=== PATIENT | male | born 1985 | race Hispanic/Latino ===

== ENCOUNTER 2017-12-10 00:07 | Emergency (ER) | payer MEDICARE ==
[2016-05-02 23:20] VITALS: BMI 31.0
--- NOTE | 2017-12-10 01:11 | ED PDOC ---
HPI: Psych/Substance Abuse Time Seen by Provider: 12/10/17 00:39 Chief Complaint (Nursing): Psychiatric Evaluation Chief Complaint (Provider): overdose History Per: Patient History/Exam Limitations: no limitations Onset/Duration Of Symptoms: Hrs Suicide/Self Injury Attempted (Context): Ingestion Additional Complaint(s): 32 y/o male self-presents for overdose eval. Patient states he received Vivitrol injection in the [facility] 2 days ago for opioid dependence; states since then has been feeling more depressed and hearing voices telling him to kill himself. Patient states last night around 22:45 he took 30 Depakote 500mg tablets and 8-10 Seroquel 50mg tablets. Patient reports his stomach feeling "upset". Denies fever, headache, nausea/vomiting, chest pain, shortness of breath, palpitations, changes in bowel movements, urinary symptoms. Past Medical History Reviewed: Historical Data, Nursing Documentation, Vital Signs Vital Signs: Last Vital Signs Temp 98.6 F 12/10/17 00:42 Pulse 78 12/10/17 00:42 Resp 16 12/10/17 00:42 BP 123/81 12/10/17 00:42 Pulse Ox 97 12/10/17 00:42 - Medical History PMH: Anxiety, Back Problems, Depression, Fractures (Fractured Tailbone), Schizophrenia Denies: Diabetes, Hepatitis, HIV, HTN, Chronic Kidney Disease, Seizures, Sexually Transmitted Disease - Surgical History Surgical History: Tonsillectomy - Family History Family History: States: Unknown Family Hx - Immunization History Hx Tetanus Toxoid Vaccination: Yes - Home Medications Home Medications: Ambulatory Orders Medication Instructions Recorded Divalproex [Depakote DR(*BID*)] 500 mg PO BID #60 tcp 05/08/16 QUEtiapine [SEROquel] 50 mg PO HS #30 tab 05/08/16 QUEtiapine [SEROquel] 200 mg PO HS #30 tab 05/08/16 - Allergies Allergies/Adverse Reactions: Allergies Allergy/AdvReac Type Severity Reaction Status Date / Time FISH Allergy ANAPHYLAXIS Verified 02/22/16 07:30 Review of Systems ROS Statement: Except As Marked, All Systems Reviewed And Found Negative Psych: Positive for: Depression, Suicidal ideation Physical Exam - Reviewed Nursing Documentation Reviewed: Yes Vital Signs Reviewed: Yes - Physical Exam Appears: Positive for: Well, Non-toxic, No Acute Distress Head Exam: Positive for: ATRAUMATIC, NORMAL INSPECTION, NORMOCEPHALIC Skin: Positive for: Normal Color Eye Exam: Positive for: Normal appearance ENT: Positive for: Normal ENT Inspection Cardiovascular/Chest: Positive for: Regular Rate, Rhythm Respiratory: Positive for: Normal Breath Sounds Gastrointestinal/Abdominal: Positive for: Normal Exam Back: Positive for: Normal Inspection Extremity: Positive for: Normal ROM Neurologic/Psych: Positive for: Alert, Oriented (x3) - Laboratory Results Result Diagrams: 12/10/17 01:15 12/10/17 01:15 - ECG ECG: Positive for: Viewed By Me (reviewed by ED attending) ECG Rhythm: Positive for: Sinus Rhythm O2 Sat by Pulse Oximetry: 97 - Radiology X-Ray: Viewed By Me X-Ray Interpretation: No Acute Disease - Progress ED Course And Treament: 1:1,labs, urine, ekg Poison control contacted by RN; recommends 2-hour repeat EKG, and 4-hour repeat valproic acid. Supportive care 1:30 Patient resting comfortably; no complaints 3:00 Repeat EKG NSR; reviewed by ED attending 4:30 Patient resting comfortably; no complaints 6:00 Repeat valproid acid remains negative Crisis eval ordered Disposition - Clinical Impression Clinical Impression: Suicidal ideation - Disposition Disposition Time: 06:00 Condition: STABLE
[2017-12-10 01:31] LABS: EOS # 0.3 K/uL (0.0-0.7); HEMOGLOBIN 14.9 g/dL (12.0-18.0); LYMPH # 3.6 K/uL (1.0-4.3); LYMPH % 27.5 % (20.0-40.0); MEAN CELL VOLUME 92.2 fl (80.0-94.0); MEAN CORPUSCULAR HGB CONC 34.7 g/dL (33.0-37.0); MEAN PLATELET VOLUME 10.1 fl (7.2-11.7); MONO # 4.1 K/uL (0.0-0.8); NEUT # 5.2 K/uL (1.8-7.0); NEUT % 39.5 % (50.0-75.0); NRBC % 0.1 % (0.0-0.0); PLATELET COUNT 234 K/uL (130-400); RBC 4.66 Mil/uL (4.40-5.90); RED CELL DISTRIBUTION WIDTH 13.4 % (11.5-14.5); WHITE BLOOD COUNT 13.1 K/uL (4.8-10.8)
[2017-12-10 01:38] LABS: INR 1.2; PROTHROMBIN TIME 12.8 Seconds (9.8-13.1)
[2017-12-10 01:40] LABS: PARTIAL THROMBOPLASTIN TIME 35.7 Seconds (25.6-37.1)
[2017-12-10 01:43] LABS: ACETAMINOPHEN < 10.0 ug/ml (10.0-30.0); ALB/GLOB RATIO 1.3 (1.0-2.1); ALBUMIN 4.7 g/dL (3.5-5.0); ALT/SGPT 87 U/L (21-72); AST/SGOT 61 U/L (17-59); BLOOD UREA NITROGEN 20 mg/dl (9-20); CALCIUM 9.9 mg/dL (8.4-10.2); GFR NON-AFRICAN AMERICAN > 60; SALICYLATE < 1.0 mg/dl
[2017-12-10 03:59] LABS: URINE BILIRUBIN NEGATIVE (NEGATIVE); URINE BLOOD NEGATIVE (NEGATIVE); URINE CLARITY SLIGHTY-CLOUDY (Clear); URINE COLOR YELLOW (YELLOW); URINE GLUCOSE (UA) NEG (Normal); URINE LEUKOCYTE ESTERASE NEG Leu/uL (Negative); URINE PROTEIN NEGATIVE (NEGATIVE); URINE UROBILINOGEN 0.2-1.0 mg/dL (0.2-1.0)
[2017-12-10 04:37] LABS: BARBITURATES, UR NEGATIVE (NEGATIVE); BENZODIAZEPINES, UR NEGATIVE (NEGATIVE); OPIATES, UR POSITIVE (NEGATIVE); PHENCYCLIDINE, UR NEGATIVE (NEGATIVE)
[2017-12-10 05:09] LABS: BANDS 2 % (0-2); EOSINOPHIL 1 % (0-7); LYMPHOCYTE 20 % (20-50); MONOCYTE 13 % (0-10); MYELOCYTE 1 % (0-0); NEUTROPHIL 60 % (42-75); PLATELET ESTIMATE NORMAL (NORMAL); REACTIVE LYMPHOCYTES 3 % (0-0); TOTAL CELLS COUNTED 100
[2017-12-10 05:11] LABS: ANISOCYTOSIS SLIGHT; HYPOCHROMIC SLIGHT; LARGE PLATELETS PRESENT
[2017-12-10 06:30] VITALS: BP 120/75; PULSE 63; RESP 17; TEMP 97.7; O2SAT 98
--- NOTE | 2017-12-10 06:50 | ED PDOC ---
- Laboratory Results Result Diagrams: 12/10/17 01:15 12/10/17 01:15 - ECG O2 Sat by Pulse Oximetry: 98 - Progress ED Course And Treament: 6am Pt pending crisis eval after claiming to have overdosed on medication. Labs demonstrate no overdose and medically stable. 645a Cleared by Taryn TOMAS for discharge. Disposition - Clinical Impression Clinical Impression: Polysubstance abuse - POA Present On Arrival: None - Disposition Referrals: Community [facility] [Outside] Disposition: Routine/Home Disposition Time: 06:50 Condition: IMPROVED Instructions: Polysubstance Abuse (DC)
--- NOTE | 2017-12-10 08:25 | RAD ---
Date of service: 12/10/2017 HISTORY: overdose COMPARISON: No prior. FINDINGS: LUNGS: The lungs are well inflated and clear. PLEURA: No significant pleural effusion identified, no pneumothorax apparent. CARDIOVASCULAR: Normal. OSSEOUS STRUCTURES: No significant abnormalities. VISUALIZED UPPER ABDOMEN: Normal. OTHER FINDINGS: None. IMPRESSION: No active pulmonary disease.
--- NOTE | 2017-12-10 09:28 | CARD ---
APPROVED REPORT Date of service: 12/10/2017 EKG Measurement Heart [id number] <Conclusion> Normal sinus rhythm NT wave abnormaltiy abnormal ECG
== END 2017-12-10 07:12 | disposition home or self-care (01) ==
LOC: H.ER 00:07
DX: F19.10 Other psychoactive substance abuse, uncomplicated (principal); F20.9 Schizophrenia, unspecified; F32.9 Major depressive disorder, single episode, unspecified; F41.9 Anxiety disorder, unspecified
CPT/HCPCS: 71045; 80053; 80164; 81003; 82948; 85025; 85610; 85730; 93005; 99284; G0480